=== PATIENT | male | born 1935 | race Caucasian/White ===

== ENCOUNTER 2021-02-18 23:21 | Inpatient (IN) | payer OTHER, MEDICARE ==
[~2021-02-18] VITALS: Ht 180.3 cm; Wt 73.3 kg
[~2021-02-18 23:21] MED LIST: ASCO500 PO; Aspir 8181 MG PO; BANATROL PLUS PT; Daily Vitamin1 EAC8 PO; FOLI1 PO; Garlic1 EAC1 PO; HURRICAINE ONE1 EACH MT; LEVSOD25 PO; LISI5 PO; LOPE2C PO; NIAC500 PO; OMEP20ER PO; ONDA4 PO; OYSTER SHELL 51 EACH PO; TRAZ50 PO; VITAMIN D31000 UNI1 PO; Vitamin B Comple1 EA PO
[2021-02-18 23:54] LABS: BASOPHILS ABSOLUTE AUTO 0.01 K/mm3 (0.00-0.23); BASOPHILS PERCENT AUTO 0 % (0-2); EOSINOPHILS ABSOLUTE AUTO 0.06 K/mm3 (0.00-0.68); EOSINOPHILS PERCENT AUTO 3 % (0-6); Hematocrit 26.3 % (37.0-53.0); Hemoglobin 9.1 g/dL (13.5-17.5); Mean Corpuscular HGB 33.7 pg (26.0-34.0); Mean Corpuscular HGB Conc 34.6 g/dL (31.5-36.5); Mean Corpuscular Volume 97 fL (80-100); NRBC ABSOLUTE 0.02 K/mm3 (0.00-0.02); NRBC Auto 0.8 /100 WBC (0.0-0.2); RDW Coefficient Variation 15.8 % (11.7-14.2); RDW Standard Deviation 53.3 fL (35.1-46.3); White Blood Cell Count 2.38 K/mm3 (4.00-11.30)
[2021-02-18 23:58] LABS: IMMATURE GRAN ABSOLUTE AUTO 0.02 K/mm3 (0.00-0.10); IMMATURE GRAN PERCENT AUTO 1 % (0-1); LYMPHOCYTES ABSOLUTE AUTO 0.42 K/mm3 (0.84-5.20); LYMPHOCYTES PERCENT AUTO 18 % (21-46); MONOCYTES ABSOLUTE AUTO 0.09 K/mm3 (0.16-1.47); MONOCYTES PERCENT AUTO 4 % (4-13); NEUTROPHILS ABSOLUTE AUTO 1.78 K/mm3 (1.96-9.15); NEUTROPHILS PERCENT AUTO 75 % (41-73); Platelet Count 93 K/mm3 (150-400)
[2021-02-19] LABS: Calcium, Ionized (POC) 1.01 mmol/L (1.10-1.46); Chloride (POC) 98 mmol/L (98-108); Creatinine (POC) 0.3 mg/dL (0.8-1.3); Glucose (ISTAT POC) 92 mg/dL (70-99); Hemoglobin (POC) 8.2 g/dL (13.5-17.5); Potassium (POC) 4.4 mmol/L (3.5-5.5); Sodium (POC) 131 mmol/L (135-148); Total CO2 (POC) 21 mmol/L (21-32)
[2021-02-19 00:12] LABS: Alanine Aminotransfer (ALT/SGP 33 U/L (12-78); Albumin, Blood 3.3 g/dL (3.4-5.0); Albumin/Globulin Ratio 1.2 (0.8-1.8); Alk Phos 52 U/L (50-136); Anion Gap 6 mmol/L (6-16); Aspartate Aminotrans (AST/SGOT 19 U/L (12-37); Bilirubin, Total 0.5 mg/dL (0.1-1.0); Blood Urea Nitrogen 17 mg/dL (8-24); Bun/Creatinine Ratio 31.9 (12.0-20.0); CO2, Blood 25 mmol/L (21-32); Calcium, Blood 7.9 mg/dL (8.5-10.1); Chloride, Blood 102 mmol/L (98-108); Creatinine, Blood 0.53 mg/dL (0.60-1.20); Globulin, Blood 2.7 g/dL (2.2-4.0); Glomerular Filtration Rate >60 (60-); Glucose, Blood 90 mg/dL (70-99); Potassium, Blood 4.8 mmol/L (3.5-5.5); Sodium, Blood 133 mmol/L (136-145); Troponin I <0.015 ng/mL (0.000-0.040)
[2021-02-19 00:51] LABS: Magnesium, Blood 1.9 mg/dL (1.6-2.4); Phosphorus, Blood 2.3 mg/dL (2.5-4.9)
[2021-02-19 02:53] LABS: Source, Urine Clean Catch
[2021-02-19 02:56] LABS: Bilirubin, Urine Neg (Neg); Blood, Urine Neg (Neg); Glucose Qualitative, Urine Neg (Neg); Ketones, Urine Neg (Neg); Leukocyte Esterase, Urine Neg (Neg); Nitrite, Urine Neg (Neg); Protein, Urine Neg (Neg); Urobilinogen, Urine 1+ (Normal)
[2021-02-19 02:57] LABS: Appearance, Urine Clear (Clear); Color, Urine Yellow (P-Yellow)
--- NOTE | 2021-02-19 06:45 | NUR ---
PT ADMITTED TO ROOM ICU 1 FROM EMERGENCY DEPARTMENT. ARRIVES AT 0432. PT ALERT AND ORIENTED. PLEASANT AND COOPERATIVE WITH CARE. PT'S ARRIVAL HEART RATE AT 140'S. NO SVT NOTED. PROCAINIMIDE INTIATED AT 1 MG/MIN. BLOOD PRESSURES REMAIN SOFT WITH MAP MAINTAINING 60-65. HAVE INCREASED MED TO 2MG/MIN. BLOOD PRESSURES HAVE DECREASED SLIGHTLY. WILL MONITOR FOR NEED TO START LEVOPHED DRIP. WILL CONTINUE TO MONITOR PT, AND WILL REPORT OFF TO ONCOMING RN.
--- NOTE | 2021-02-19 08:46 | NUR ---
Care Assumed 0700 Pt A/O X 4. On Procainamide GTT current @ 4 mg/min and Levophed 4 mcg/min. Pt converted to NSR form 0817 to 0834 and converted back to SVT (HR 130'S) after. See vital sign flowsheet for more detail. Calm and cooperative. Great historian. Pt recieved chemo on Tuesday. Denies CP and N/V. Has peg tube in place for bolus feeds that patient states he does independently at home. On RA SPO2 > 90%, lung sounds clear/dim. Call light within reach.
[2021-02-19 09:34] LABS: BASOPHILS ABSOLUTE AUTO 0.01 K/mm3 (0.00-0.23); BASOPHILS PERCENT AUTO 0 % (0-2); Hematocrit 22.1 % (37.0-53.0); Hemoglobin 7.5 g/dL (13.5-17.5); LYMPHOCYTES ABSOLUTE AUTO 0.36 K/mm3 (0.84-5.20); LYMPHOCYTES PERCENT AUTO 15 % (21-46); MONOCYTES ABSOLUTE AUTO 0.14 K/mm3 (0.16-1.47); MONOCYTES PERCENT AUTO 6 % (4-13); Mean Corpuscular HGB 33.3 pg (26.0-34.0); Mean Corpuscular HGB Conc 33.9 g/dL (31.5-36.5); Mean Corpuscular Volume 98 fL (80-100); Mean Platelet Volume 10.1 fL (9.1-12.4); NRBC ABSOLUTE 0.02 K/mm3 (0.00-0.02); NRBC Auto 0.9 /100 WBC (0.0-0.2); Platelet Count 93 K/mm3 (150-400); RDW Coefficient Variation 16.2 % (11.7-14.2); RDW Standard Deviation 55.5 fL (35.1-46.3); Red Blood Cell Count 2.25 M/mm3 (4.30-5.90); White Blood Cell Count 2.35 K/mm3 (4.00-11.30)
[2021-02-19 09:40] LABS: EOSINOPHILS ABSOLUTE AUTO 0.05 K/mm3 (0.00-0.68); EOSINOPHILS PERCENT AUTO 2 % (0-6); IMMATURE GRAN ABSOLUTE AUTO 0.02 K/mm3 (0.00-0.10); IMMATURE GRAN PERCENT AUTO 1 % (0-1); NEUTROPHILS ABSOLUTE AUTO 1.77 K/mm3 (1.96-9.15); NEUTROPHILS PERCENT AUTO 75 % (41-73)
[2021-02-19 09:55] LABS: Anion Gap 5 mmol/L (6-16); Blood Urea Nitrogen 15 mg/dL (8-24); Bun/Creatinine Ratio 25.4 (12.0-20.0); CO2, Blood 24 mmol/L (21-32); Calcium, Blood 6.9 mg/dL (8.5-10.1); Chloride, Blood 105 mmol/L (98-108); Creatinine, Blood 0.59 mg/dL (0.60-1.20); Glomerular Filtration Rate >60 (60-); Glucose, Blood 91 mg/dL (70-99); Potassium, Blood 4.7 mmol/L (3.5-5.5); Sodium, Blood 134 mmol/L (136-145); Troponin I 0.107 ng/mL (0.000-0.040)
--- NOTE | 2021-02-19 11:14 | NUR ---
Update- Dr. Cody and Dr. Zendejas visit Dr. Cody in to see patient and new orders recieved. Pts procainamide changed to amiodarone. Pt converted to NSR AT 1054, HR 80'S. Pt complains of having chest tightness and headache. Dr. Zendejas in to see patient, new orders recieved. See emar. Provider would like patients pain treated with Fenantyl, 12.5 mcg/ml. Echo at bedside.
--- NOTE | 2021-02-19 12:30 | NUR ---
Echocardiogram completed.
[2021-02-19 13:31] LABS: Hemoglobin 8.5 g/dL (13.5-17.5)
--- NOTE | 2021-02-19 13:32 | NUR ---
Update- Dr. Cody and Dr. Cristiana Cody would like Levophed titerated down to keep MAP > 60, see flow sheet. Would like EKG completed after patient converts. New orders recieved, see emar. Dr. Zendejas called in regards to patients pain. (05/31) tight CP, new orders recieved. Patient states pain has improved with morphine and ketorolac, see emar (01/29). Patient does not want another IV and ordered recieved to replace NaPhos via Peg.
--- NOTE | 2021-02-19 15:05 | NUR ---
Provider Call/NSR Pt converted to NSR at 1432. EKG completed see chart. Two EKG's, first shows NSR to AFIB with RVR back to NSR. Dr. Cody made aware. Provider would like MAP > 60, will titrate Levophed. Trop to be rechecked in 12 hours. Pt states CP is no longer present. NSR. VSS.
--- NOTE | 2021-02-19 17:38 | NUR ---
Dr. Cody called Dr. Cody called in regards to patient possibly being in VT (HR 155-250) for a few moments, see strip in chart. Pt asymptomatic. New orders recieved via phone for Mg and BMP lab draw. Dr. Cody at bedside and VT determined to be artifact. Labs canceled and new orders recieved, see emar.
--- NOTE | 2021-02-19 18:01 | NUR ---
Shift Summary Amiodarone 0.5 mg/min via left wrist IV. Has converted to NSR (HR 60-70'S), see previous notes. Pt denies CP and nausea at this time. Sleeping currently. Bolus feeds given per order via peg tube. Pt tolerated well. Able to use urinal at bedside. Remains A/O X 4 and calm/coopertive. Remains on RA, SPO2 > 95%. No cough. Able to use call light.
[2021-02-20 04:03] LABS: Hematocrit 21.5 % (37.0-53.0); Hemoglobin 7.2 g/dL (13.5-17.5); Mean Corpuscular HGB 33.3 pg (26.0-34.0); Mean Corpuscular HGB Conc 33.5 g/dL (31.5-36.5); Mean Corpuscular Volume 100 fL (80-100); Mean Platelet Volume 10.3 fL (9.1-12.4); Platelet Count 85 K/mm3 (150-400); RDW Coefficient Variation 16.6 % (11.7-14.2); RDW Standard Deviation 56.8 fL (35.1-46.3); Red Blood Cell Count 2.16 M/mm3 (4.30-5.90)
[2021-02-20 04:33] LABS: Anion Gap 5 mmol/L (6-16); Blood Urea Nitrogen 24 mg/dL (8-24); Bun/Creatinine Ratio 37.8 (12.0-20.0); CO2, Blood 24 mmol/L (21-32); Calcium, Blood 6.9 mg/dL (8.5-10.1); Chloride, Blood 101 mmol/L (98-108); Creatinine, Blood 0.64 mg/dL (0.60-1.20); Glomerular Filtration Rate >60 (60-); Glucose, Blood 127 mg/dL (70-99); Magnesium, Blood 2.2 mg/dL (1.6-2.4); Potassium, Blood 4.4 mmol/L (3.5-5.5); Sodium, Blood 130 mmol/L (136-145); Troponin I 0.052 ng/mL (0.000-0.040)
[2021-02-20 05:57] LABS: BAND PERCENT MAN 3 % (0-8); BASOPHILS PERCENT MAN 0 % (0-2); EOSINOPHILS ABSOLUTE MAN 0.02 K/mm3 (0.00-0.68); EOSINOPHILS PERCENT MAN 1 % (0-6); LYMPHOCYTES ABSOLUTE MAN 0.38 K/mm3 (0.84-5.20); LYMPHOCYTES PERCENT MAN 16 % (21-46); MONOCYTES ABSOLUTE MAN 0.14 K/mm3 (0.16-1.47); MONOCYTES PERCENT MAN 6 % (4-13); NEUTROPHILS ABSOLUTE MAN 1.84 K/mm3 (1.96-9.15); SEG NEUTROPHILS PERCENT MAN 74 % (41-73); TOTAL CELLS COUNTED 100
--- NOTE | 2021-02-20 07:15 | NUR ---
SHIFT SUMMARY PATIENT IS ALERT AND ORIENTED X4. 2 PERSON ASSIST WITH REPOSITIONING, ENCOURAGED ROM. 02 SATS 97% ON RA. AMIODARINE gtt @.5MG/MIN, PATIENT SR THROUGHOUT SHIFT. EKG DONE, IN CHART. LEVOPHED TITRATED DOWN AND TURNED OFF @0614. BP STABLE MAP IN THE 70s-80s. PATIENT STATES PAIN WITH DEEP BREATHING, MEDICATED PER EMAR. TUBE FEEDING AND FLUSHES PROVIDED. CALL LIGHT IN REACH.
--- NOTE | 2021-02-20 07:49 | NUR ---
Care Assumed 0700 Amiodarone 0.5 MG/MIN VIA POWERGLIDE TO CLARISSE. And LR @ 100 ML/HR via left wrist IV. Pt remains in NSR with HR 60's. Denies chest pain but states having "some discomfort with deep breaths." Levophed remains on SB, MAP > 65. A/O X 4. Calm and Coopertive. Call light within reach. Dr. Zendejas called in regards to Hgb of 7.2. Provider would like CBC completed at 1200.
--- NOTE | 2021-02-20 10:00 | NUR ---
DR. CHANCE IN TO SEE PATIENT Provider in to see patient. no new orders recieved. Provider made aware of H&H. Would like to transfuse if next Hbg is < 7.
--- NOTE | 2021-02-20 11:23 | NUR ---
PCU STATUS Dr. Cody in to see patient and would like to transfer to PCU. Transfer order placed. Pt A/O X 4. Levo remains offs. NSR. Denies CP except slight discomfort with deep breaths. SPO2 > 90%. LR @ 100 ml/hr.
--- NOTE | 2021-02-20 11:49 | NUR ---
Update- Dr. Cristiana Zendejas in to see patient. New orders recieved to DC LR once this bag is completed and patient may situp in chair, as tolerated. Will ambulate to chair when possible.
[2021-02-20 13:01] LABS: Hematocrit 19.8 % (37.0-53.0); Hemoglobin 6.8 g/dL (13.5-17.5); Mean Corpuscular HGB 33.8 pg (26.0-34.0); Mean Corpuscular HGB Conc 34.3 g/dL (31.5-36.5); Mean Corpuscular Volume 99 fL (80-100); Mean Platelet Volume 10.7 fL (9.1-12.4); Platelet Count 74 K/mm3 (150-400); RDW Coefficient Variation 16.4 % (11.7-14.2); RDW Standard Deviation 56.1 fL (35.1-46.3); Red Blood Cell Count 2.01 M/mm3 (4.30-5.90); White Blood Cell Count 1.83 K/mm3 (4.00-11.30)
--- NOTE | 2021-02-20 13:04 | NUR ---
Shift summary Report given to ELIANA Oropeza. Pt remains the same. See previous notes.
--- NOTE | 2021-02-20 13:29 | NUR ---
Assumed care of this pt. He is a/o x 4 with no c/o pain at this time. He is however perseverating over a lost set of keys. He is sitting up in bed making phone calls to find out what happened to the keys. His VSS. IV fluids are infusing as ordered. He is able to make his needs known and has his call light in reach. He is currently PCU status as of this afternoon.
[2021-02-20 14:02] LABS: BAND PERCENT MAN 2 % (0-8); BASOPHILS PERCENT MAN 0 % (0-2); EOSINOPHILS ABSOLUTE MAN 0.01 K/mm3 (0.00-0.68); EOSINOPHILS PERCENT MAN 1 % (0-6); LYMPHOCYTES % ATYPICAL MANUAL 3 % (0-0); LYMPHOCYTES ABSOLUTE MAN 0.31 K/mm3 (0.84-5.20); LYMPHOCYTES PERCENT MAN 14 % (21-46); MONOCYTES PERCENT MAN 0 % (4-13); SEG NEUTROPHILS PERCENT MAN 80 % (41-73); TOTAL CELLS COUNTED 100
--- NOTE | 2021-02-20 14:45 | NUR ---
Met with pt to discuss his care needs. pt [facility] [address]. He does not see much of his children. He is helped by neighbors. pt states he hs some appetite and feels full with his feedings. He denies any major pain. he states he has falled twice in the past few months one of them sounded very serious. He states he has an advance directive. He is not service connected but gets care at the [facility] at the [place]. He has an advance directive at home but not one from the [place] he has not filled it out yet. while we were talking his freind came in who has been helping him pay his bills. Pt made and error and did not give him enough money and shorted him. the friend covered it. Pt became very distraught so ended conversation so they could talk. will return to do a polst. pt use dial a ride. He may need higher level of support in his ADLS going forward. High risk for injury and failure to thrive. will see what oncology has to say about further treatment.
--- NOTE | 2021-02-20 14:48 | NUR ---
Pt hbg lab resulted at 6.8 and was called to Dr Zendejas. gave orders to infuse 1 un PRBCs and the blood bank has been notified. Pt needs to be type and crossed.
--- NOTE | 2021-02-20 16:32 | NUR ---
Echocardiogram completed.
--- NOTE | 2021-02-20 17:24 | NUR ---
Pt has a bed in PCU 12. The pt has been made aware of the pending transfer. Awaiting for call back from receiving RN.
--- NOTE | 2021-02-20 18:30 | NUR ---
PT ARRIVED TO [facility]. PT ALERT, ORIENTED AND ABLE TO STAND AND TRANSFER FROM WHEELCHAIR TO BED. PT ORIENTED TO ROOM, CALL LIGHT AND UNIT ROUTINES. PT'S BELONGINGS PLACED ON BEDSIDE TABLE W/IN HIS REACH. PT IS NPO. PT VERBALIZES UNDERSTANDING TO CALL STAFF IF NEEDING ASSISTANCE AND TO NOT GET OUT OF BED ON HIS OWN AT THIS TIME. CALL LIGHT IN REACH. NO FURTHER NEEDS IDENTIFIED. NETWORKS COMPUTER CONSULTANT IN PLACE.
--- NOTE | 2021-02-21 01:32 | NUR ---
AFTER TUBE FEEDING OF APROX 2100 PT REPORTED STOMACH DISCOMFORT. PT HAD LOOSE STOOL. PT ASKED TO HAVE SOME RESIDUAL TAKEN OUT. 200 WAS TAKEN OUT PER REQUEST. PT STILL IS FEELING UNCOMFORTABLE.
[2021-02-21 06:50] LABS: Hematocrit 23.1 % (37.0-53.0)
--- NOTE | 2021-02-21 08:00 | NUR ---
pt laying in bed awake a/ox3, pleasant and cooperative with care, saylows commands well, denies pain at this time reports a rough night with his stomach hurting, not nausia but pain, is feeling better now, no residule noted, lungs are clear t/o, dim in bases, resp even and unlabored, on r/a, no cough noted, hrirr, tele in place running afib with bbb per quality assurance monitor, see strip, edema noted to b/l le and ue, iv to lfa and power glide to elliot, sites are clear and patent, btx4, abd flat soft, voids via urinal and attends in place, skin c/w/d, maew, weak, eileen, call light in reach.
--- NOTE | 2021-02-21 08:05 | NUR ---
SHIFT SUMMARY PT IS ALERT AND RIENTED X4. PT VITALS ARE STABLE. PT REPORTS DISCOMFORT IN STOMACH AFTER TUBE FEEDING. PT DID TUBE FEEDING BY SELF DUE TO GRAVITY FEEDING THAT HE DOES AT HOME. PT WAS SET UP WITH FEEDING AND FLUSH WATER. APPROX 1HR AFTER FEEDING PT STS FEELING VERY FULL AND BLOATED THIS NURSE ASSISTED IN TAKING 200 OUT TO HELP WITH COMFORT. PT THEN AFTER HAD A LARGE BM AND ASKED IF MORE CONTENTS FROM THE FEEDING COULD BE REMOVED. THERE WAS NOT MUCH MORE TO REMOVE. PT REPORTED DISCOMFORT AND COULD NOT SLEEP. ASKED FOR SLEEP AID. MELATONIN PER EMAR WAS GIVEN WITH SMALL AMOUNT OF FLUID AND FLUSH. PT REFUSED TO TAKE ANY OTHER MEDICATIONS SUCH NAUSEA, PAIN, NYSTATIN, ADVIL. PT STS THAT HE HAS A FEAR OF "RUINING THE PEG TUBE" "ALWAYS FEELING THIS WAY AND HE WILL JUST ."
[2021-02-21 08:08] LABS: Anion Gap 6 mmol/L (6-16); Blood Urea Nitrogen 19 mg/dL (8-24); Bun/Creatinine Ratio 38.9 (12.0-20.0); CO2, Blood 25 mmol/L (21-32); Chloride, Blood 100 mmol/L (98-108); Creatinine, Blood 0.49 mg/dL (0.60-1.20); Glomerular Filtration Rate >60 (60-); Glucose, Blood 100 mg/dL (70-99); Magnesium, Blood 2.1 mg/dL (1.6-2.4); Potassium, Blood 4.6 mmol/L (3.5-5.5); Sodium, Blood 131 mmol/L (136-145)
--- NOTE | 2021-02-21 18:45 | NUR ---
STARTED BOWEL CARE, PT TOLERATED FEEDING BUT REPORTED IT MADE HIM FEEL VERY FULL. THIS WAS RAN ON A PUMP INSTEAD OF BOLUS. HE MAY WANT TO SKIP TONIGHTS FEED. NO FURTHER CHANGES THIS SHIFT. CALL LIGHT IN REACH.
[2021-02-22 05:52] LABS: Hematocrit 24.4 % (37.0-53.0); Hemoglobin 8.4 g/dL (13.5-17.5); Mean Corpuscular HGB 32.6 pg (26.0-34.0); Mean Corpuscular HGB Conc 34.4 g/dL (31.5-36.5); Mean Corpuscular Volume 95 fL (80-100); Mean Platelet Volume 9.9 fL (9.1-12.4); Platelet Count 98 K/mm3 (150-400); RDW Coefficient Variation 16.9 % (11.7-14.2); RDW Standard Deviation 56.2 fL (35.1-46.3); Red Blood Cell Count 2.58 M/mm3 (4.30-5.90); White Blood Cell Count 2.52 K/mm3 (4.00-11.30)
[2021-02-22 06:11] LABS: Alanine Aminotransfer (ALT/SGP 22 U/L (12-78); Albumin, Blood 2.2 g/dL (3.4-5.0); Albumin/Globulin Ratio 0.8 (0.8-1.8); Alk Phos 52 U/L (50-136); Anion Gap 5 mmol/L (6-16); Aspartate Aminotrans (AST/SGOT 15 U/L (12-37); Bilirubin, Total 0.6 mg/dL (0.1-1.0); Blood Urea Nitrogen 16 mg/dL (8-24); Bun/Creatinine Ratio 37.6 (12.0-20.0); CO2, Blood 25 mmol/L (21-32); Calcium, Blood 7.2 mg/dL (8.5-10.1); Chloride, Blood 99 mmol/L (98-108); Creatinine, Blood 0.43 mg/dL (0.60-1.20); Globulin, Blood 2.7 g/dL (2.2-4.0); Glomerular Filtration Rate >60 (60-); Glucose, Blood 88 mg/dL (70-99); Potassium, Blood 4.6 mmol/L (3.5-5.5); Sodium, Blood 129 mmol/L (136-145); Total Protein, Blood 4.9 g/dL (6.4-8.2)
[2021-02-22 06:25] LABS: BAND PERCENT MAN 1 % (0-8); BASOPHILS PERCENT MAN 0 % (0-2); EOSINOPHILS ABSOLUTE MAN 0.07 K/mm3 (0.00-0.68); EOSINOPHILS PERCENT MAN 3 % (0-6); LYMPHOCYTES ABSOLUTE MAN 0.42 K/mm3 (0.84-5.20); LYMPHOCYTES PERCENT MAN 17 % (21-46); MONOCYTES ABSOLUTE MAN 0.22 K/mm3 (0.16-1.47); MONOCYTES PERCENT MAN 9 % (4-13); NEUTROPHILS ABSOLUTE MAN 1.78 K/mm3 (1.96-9.15); SEG NEUTROPHILS PERCENT MAN 70 % (41-73); TOTAL CELLS COUNTED 100
--- NOTE | 2021-02-22 06:30 | NUR ---
SHIFT SUMMARY PATIENT IS A PLEASANT MAN WHO IS A&OX4 AND ZUNI. GOTTLIEB. GEN WEAKNESS NOTED. VSS. ON RA. AFIB ON THE MONITOR IN THE 80'S MOST OF SHIFT. NPO WITH Q2H ORAL CARE PERFORMED. UP WITH ONE ASSIST TO BSC. SMALL BM AT START OF SHIFT. REFUSED BOLUS FEED GOT OFF SCHEDULE THROUGH DAYSHIFT AFTER TOO FULL PREVIOUS NIGHT. VOIDING WELL PER URINAL. NO PAIN OR DISTRESS NOTED UPON ASSESSMENT. WILL CONTINUE TO MONITOR UNTIL REPORT GIVEN TO ELEN MONROY.
--- NOTE | 2021-02-22 13:31 | NUR ---
PCU GAVE REPORT TO THIS RN AND INFORMED ASSUMING RN THAT THEY HAD CORVERT SYRINGE IN UNIT AND WILL BRING OVER WITH PATIENT. THIS RN LOOKED MEDICATION UP AND IT STATED TO ADMINISTER OVER 10 MINUTES. PHARMACY CALLED AND INFORMED. PHARMACY STATED TO SEND BACK AND THEY WOULD PUT IN BOLUS FORM. DR. CORTES CALLED AND ASKED WHAT HE WOULD LIKE DONE ABOUT PATIENT RECIEVING AMIODARONE PO THIS AM AND DOSE ORDERED TO BE GIVEN AT 1400 CONTRAINDICATED TO GIVE AMIODARONE WITHIN [address] CORTES STATED THAT OKAY TO GIVE CORVERT SOON RECEIVE PATIENT AND MEDICATION. STATED TO STILL GIVE 1400 DOSE OF AMIODARONE WHILE CORVERT INFUSING BUT LOWER DOSE FROM 400 MG TO 200 MG. PHARMACY CALLED BY THIS RN AND NOTIFIED. PHARMACISTS STATED THEY WERE GOING TO TALK ABOUT CORVERT WITH AMIODARONE AND MAY CALL DR. CORTES TO TRIPLE CHECK.
--- NOTE | 2021-02-22 13:38 | NUR ---
PT TRANSFER: PT CONTINUES A&OX4, MAINTAINS O2 SATS >92% ON RA, AND CONTINUES IN AFIB WITH RATE INCREASING TO 110s. PT TRANSFERED TO ICU PER DR CORTES TO ALLOW ADMINISTRATION OF MEDICATION FOR ARRHYTHMIA. REPORT GIVEN TO ELIANA BOYLE IN ICU TO RECEIVE PT. PT DEPARTS IN NAD.
--- NOTE | 2021-02-22 13:50 | NUR ---
PATIENT ARRIVED AT 1340 FROM PCU TO CONVERT WITH CORVERT FROM A.FIB. PATIENT A AND O X 4. TEMP OF 99.1 DEGREES FAHRENHEIT. CABAZON. PATIENT SATTING 90% AND GREATER ON RA. LUNGS CLEAR THROUGHOUT. PATIENT IN A.FIB, HR IN THE LOW 100S. SBP 150S. 1+ EDEMA NOTED TO ANKLES. PEG TUBE IN PLACE; CLAMPED. NO VOID YET THIS SHIFT. RASH JUST BELOW AND MEDIAL TO KNEES. PG TO CLARISSE. SODIUM PHOS INFUSING. PATIENT ORIENTED TO ROOM, CALL LIGHT, UNIT. BED LOW, CALL LIGHT IN REACH. WILL CONTINUE TO MONITOR.
--- NOTE | 2021-02-22 14:13 | NUR ---
CORVERT BOLUS STARTED AT 1403. PATIENT CONVERTED INTO SR WITH BBB AT 1407 AFTER 20.7 MLS OF CORVERT INFUSED. CORVERT STOPPED SOON CONVERTED. DR. CORTES CALLED AND UPDATED. INFORMED THAT PATIENT HAVING SOME PACS. STATED TO KEEP CORVERT OFF AND IF GOES BACK IN TO A. FIB THEN TO GIVE HIM A CALL.
--- NOTE | 2021-02-22 15:41 | NUR ---
Dr Cody by and patient converted back to A-Fib 100's for about 10 minutes and back to SR 60-70's. See nurse notify for instructions. Patient denies and self awareness of conversions. No changes to systolic during that time.
--- NOTE | 2021-02-22 17:35 | NUR ---
PATIENT A AND O X 4, HOWEVER FORGETFUL AT TIMES. PATIENT HAS TEMP OF 99.0 DEGREES FAHRENHEIT. PATIENT REMAINS SATTING 90% AND GREATER ON RA. PATIENT REMAINS IN SR WITH BBB. HR IN THE 70S. SBP IN THE 130S. AWAITING CALL FROM PCU NURSE TO GIVE REPORT PATIENT TRANSFERRING BACK TO PCU.
--- NOTE | 2021-02-22 18:01 | NUR ---
PATIENT TRANSFERRED BACK TO PCU 12. ALL BELONGINGS SENT WITH PATIENT.
--- NOTE | 2021-02-22 18:41 | NUR ---
SHIFT SUMMARY: RECEIVED PT BACK FROM ICU. PT CONTINUES IN SR AT THIS TIME. NO OTHER ACUTE CHANGES. WILL CONTINUE TO MONITOR AND TREAT ACCORDINGLY UNTIL CHANGE OF SHIFT.
[2021-02-23 06:18] LABS: BASOPHILS ABSOLUTE AUTO 0.01 K/mm3 (0.00-0.23); BASOPHILS PERCENT AUTO 1 % (0-2); EOSINOPHILS PERCENT AUTO 5 % (0-6); Hematocrit 21.8 % (37.0-53.0); Hemoglobin 7.7 g/dL (13.5-17.5); Mean Corpuscular HGB 33.3 pg (26.0-34.0); Mean Corpuscular HGB Conc 35.3 g/dL (31.5-36.5); Mean Corpuscular Volume 94 fL (80-100); Mean Platelet Volume 9.7 fL (9.1-12.4); Platelet Count 103 K/mm3 (150-400); RDW Coefficient Variation 16.4 % (11.7-14.2); RDW Standard Deviation 55.1 fL (35.1-46.3); Red Blood Cell Count 2.31 M/mm3 (4.30-5.90); White Blood Cell Count 1.86 K/mm3 (4.00-11.30)
[2021-02-23 06:22] LABS: IMMATURE GRAN ABSOLUTE AUTO 0.01 K/mm3 (0.00-0.10); IMMATURE GRAN PERCENT AUTO 1 % (0-1); LYMPHOCYTES ABSOLUTE AUTO 0.53 K/mm3 (0.84-5.20); LYMPHOCYTES PERCENT AUTO 29 % (21-46); MONOCYTES ABSOLUTE AUTO 0.13 K/mm3 (0.16-1.47); MONOCYTES PERCENT AUTO 7 % (4-13); NEUTROPHILS ABSOLUTE AUTO 1.08 K/mm3 (1.96-9.15); NEUTROPHILS PERCENT AUTO 58 % (41-73)
[2021-02-23 06:39] LABS: Anion Gap 6 mmol/L (6-16); Blood Urea Nitrogen 16 mg/dL (8-24); Bun/Creatinine Ratio 34.5 (12.0-20.0); CO2, Blood 25 mmol/L (21-32); Calcium, Blood 7.1 mg/dL (8.5-10.1); Chloride, Blood 97 mmol/L (98-108); Creatinine, Blood 0.46 mg/dL (0.60-1.20); Glomerular Filtration Rate >60 (60-); Glucose, Blood 89 mg/dL (70-99); Magnesium, Blood 1.9 mg/dL (1.6-2.4); Phosphorus, Blood 2.3 mg/dL (2.5-4.9); Potassium, Blood 4.4 mmol/L (3.5-5.5); Sodium, Blood 128 mmol/L (136-145)
[2021-02-23 07:41] LABS: BAND PERCENT MAN 1 % (0-8); BASOPHILS PERCENT MAN 0 % (0-2); EOSINOPHILS ABSOLUTE MAN 0.13 K/mm3 (0.00-0.68); EOSINOPHILS PERCENT MAN 7 % (0-6); LYMPHOCYTES ABSOLUTE MAN 0.46 K/mm3 (0.84-5.20); LYMPHOCYTES PERCENT MAN 25 % (21-46); MONOCYTES ABSOLUTE MAN 0.11 K/mm3 (0.16-1.47); MONOCYTES PERCENT MAN 6 % (4-13); NEUTROPHILS ABSOLUTE MAN 1.15 K/mm3 (1.96-9.15); SEG NEUTROPHILS PERCENT MAN 61 % (41-73); TOTAL CELLS COUNTED 100
--- NOTE | 2021-02-23 07:50 | NUR ---
SHIFT SUMMARY PT IS A/O. DENIES CHEST PAIN/TIGHTNESS OR SOB. HAS ANXIETY ABOUT CONDITION AND PEG TUBE. VITALS HAVE BEEN STABLE AND ON ROOM AIR. BRIEF IN PLACE. FEEDINGS AND MEDICATIONS GIVEN THROUGH PEG TUB. DENIES STOMACH DISCOMFORT. SLEPT WELL T/O NIGHT.
--- NOTE | 2021-02-23 18:33 | NUR ---
SHIFT SUMMARY: PT CONTINUES A&O, RESP EVEN AND UNLABORED ON RA, AFIB WITH CONTROLLED RATE ON MONITOR. PT TOLERATES PEG TUBE FEEDINGS WELL, IS ABLE TO ASSIST WITH FEEDINGS. PT DOES C/O FEELING FULL THIS AFTERNOON AFTER HIS FEEDING, APPROX 120 ML RESIDUAL PULLED FROM TUBE, PT STATES IMPROVEMENT OF FEELING. PT EVAL COMPLETED TODAY. PT FOUND TO BE DOING LEG LIFTS AND ANKLE ROTATIONS IN THE BED, VERBALIZES MOTIVATION TO INCREASE STRENGTH. PT WITH SOME LOOSE STOOL, IS ABLE TO USE FWW TO BSC, MILD WEAKNESS NOTED. AT THIS TIME, PT IS RESTING QUIETLY IN BED, WILL CONTINUE TO MONITOR AND TREAT ACCORDINGLY UNTIL CHANGE OF SHIFT.
--- NOTE | 2021-02-23 22:00 | NUR ---
ASSUMED CARE PT IS ALERT AND ORIENTED. VERY EMOTIONAL AND ANXIOUS WHEN GETTING PEG TUBE CARE AND MEDICATION. MEDICATIONS AND FEEDINGS HAVE BEEN DONE BY GRAVITY WITH LIMITED FLUIDS PER PT REQUEST DUE TO FEAR OF CAUSING FULLNESS. PEG FLOWING WELL AND PT IS TOLERATING WELL. PT DENIES CHEST PAIN AND SOB, CURRENTLY ON ROOM AIR. ATTENDS IN PLACE, HAVING INCONT OF STOOL AND URINE. CALL LIGHT IS WITHIN REACH. WILL CONTINUE TO MONITOR.
[2021-02-24 06:20] LABS: BASOPHILS PERCENT AUTO 0 % (0-2); EOSINOPHILS ABSOLUTE AUTO 0.11 K/mm3 (0.00-0.68); EOSINOPHILS PERCENT AUTO 5 % (0-6); Hematocrit 22.1 % (37.0-53.0); Hemoglobin 7.8 g/dL (13.5-17.5); Mean Corpuscular HGB 32.9 pg (26.0-34.0); Mean Corpuscular HGB Conc 35.3 g/dL (31.5-36.5); Mean Corpuscular Volume 93 fL (80-100); Mean Platelet Volume 9.9 fL (9.1-12.4); Platelet Count 110 K/mm3 (150-400); RDW Coefficient Variation 16.1 % (11.7-14.2); RDW Standard Deviation 53.1 fL (35.1-46.3); Red Blood Cell Count 2.37 M/mm3 (4.30-5.90); White Blood Cell Count 2.13 K/mm3 (4.00-11.30)
[2021-02-24 06:27] LABS: IMMATURE GRAN ABSOLUTE AUTO 0.02 K/mm3 (0.00-0.10); IMMATURE GRAN PERCENT AUTO 1 % (0-1); LYMPHOCYTES ABSOLUTE AUTO 0.62 K/mm3 (0.84-5.20); LYMPHOCYTES PERCENT AUTO 29 % (21-46); MONOCYTES ABSOLUTE AUTO 0.29 K/mm3 (0.16-1.47); MONOCYTES PERCENT AUTO 14 % (4-13); NEUTROPHILS ABSOLUTE AUTO 1.09 K/mm3 (1.96-9.15); NEUTROPHILS PERCENT AUTO 51 % (41-73)
[2021-02-24 06:39] LABS: Anion Gap 6 mmol/L (6-16); Blood Urea Nitrogen 14 mg/dL (8-24); Bun/Creatinine Ratio 34.8 (12.0-20.0); CO2, Blood 25 mmol/L (21-32); Chloride, Blood 96 mmol/L (98-108); Glomerular Filtration Rate >60 (60-); Glucose, Blood 91 mg/dL (70-99); Potassium, Blood 4.3 mmol/L (3.5-5.5); Sodium, Blood 127 mmol/L (136-145)
--- NOTE | 2021-02-24 06:44 | NUR ---
SHIFT SUMMARY PT IS A/O. NO ACUTE CHANGES. PT IS RECIVING FEEDINGS AND MEDICATIONS THROUGH PEG TUBE WITH NO ISSUES. PT DENIES CHEST PAIN OR SOB AND IS ON ROOM AIR. PT IS INCONTINENT OF BOWEL AND URINE AND HAS A BRIEF IN PLACE. PT IS A ONE ASSIST TO BSC WITH WEAKNESS.
--- NOTE | 2021-02-24 13:22 | NUR ---
Patient is sitting on a chair and alert. Patient tells me about his cancer and about his current issues with his heart. Patient then talks at length about his natalya in God and refers to himself as a "born again believer" (he is a member of the [facility] [facility] [employer]). 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 He discusses the issues he has faced living alone and dealing with health issues but states that he feels he can still manage this for now. I reinforce helpful attitudes and practices and provide companionship, and prayer. Patient responds well and shows signs of an elevated mood. I will continue to remain available to patient and family.
--- NOTE | 2021-02-24 18:39 | NUR ---
SHIFT SUMMARY PT IS ANXIOUS REGARDING HIS CARE AND ASKS FREQUENT QUESTIONS AND NEEDS REASSURANCE. PT IS GRAYLING HOWEVER HE IS ALERT AND ORIENTED TIMES 4. PT HAS BEEN WORKING WITH PHYSICAL THERAPY TODAY AND IS A SBA WITH WALKER TO THE BATHROOM. PT HAS BEEN HAVING LOOSE STOOLS, WHICH IS NORMAL FOR HIM. PT HAS A PEG TUBE AND HELPS TO MANAGE HIS FEEDS; HE HAS HAD SOME DISCOMFORT THIS AFTERNOON AND RESIDUAL GASTRIC CONTENTS WERE ASPIRATED TO ALEVIATE THE DISCOMFORT. PT SHOULD DISCHARGE TOMORROW MOST LIKELY WITH HOME HEALTH. PT IS RESTING IN BED AT THIS TIME
--- NOTE | 2021-02-24 22:04 | NUR ---
L ARM SWELLING / MD NOTIFIED PT W/ REPORTED NEW L ARM SWELLING & BLE SWELLING. MD SUNSHINE NOTIFIED W/ ORDER FOR U.S. OF LUE & ONE TIME ORDER OF IV BUMEX. US DONE IN . NOTIFIED OF REPORTED RESULTS. NO FURTHER ORDERS.
--- NOTE | 2021-02-25 07:21 | NUR ---
SHIFT SUMMARY PT A&O X4. BP ELEVATED, IMPROVED W/ SCHEDULED PT METOPROLOL PER ORDERS. VSS. SPO2 > 92% ON RA. MONITOR SHOWING INTERMITTENT AFIB W/ PT SR-ST MAJORITY OF SHIFT, HR 60's-110's. PT NPO W/ PEG TUBE CLAMPED. L ARM REMAINS SWOLLEN, SEE PREVIOUS NOTE. NO OTHER EVENTS.
--- NOTE | 2021-02-25 09:21 | NUR ---
PT ALERT AND ORIENTED X4. ON ROOM AIR SATING ABOVE 94%. TELE SHOWING SINUS WITH HR 63. DENIES CHEST PAIN/PRESSURE. VITAL SIGNS STABLE. BOWEL TONES PRESENT. LUNGS SOUNDING CLEAR AND DIM IN BASES. PEG TUBE TO LUQ. GRAVITY FEEDING AND WATER FLUSHES PER SCHEDULE. PEG TUBE WNL. DENIES PAIN. LEFT FOREARM SWELLING COMPARED TO RIGHT. PETECHIA ON LOWER EXTREMIIES STARTING BELOW THE KNEE. PER PATIENT THAT IS NORM. WILL CONTINUE TO MONITOR. CALL LIGHT IN REACH.
[2021-02-25 11:27] LABS: Albumin, Blood 2.5 g/dL (3.4-5.0); Anion Gap 6 mmol/L (6-16); Blood Urea Nitrogen 13 mg/dL (8-24); CO2, Blood 25 mmol/L (21-32); Calcium, Blood 7.2 mg/dL (8.5-10.1); Chloride, Blood 95 mmol/L (98-108); Creatinine, Blood 0.48 mg/dL (0.60-1.20); Glomerular Filtration Rate >60 (60-); Glucose, Blood 89 mg/dL (70-99); Phosphorus, Blood 2.1 mg/dL (2.5-4.9); Potassium, Blood 4.1 mmol/L (3.5-5.5); Sodium, Blood 126 mmol/L (136-145)
[2021-02-25 11:29] LABS: Hematocrit 24.6 % (37.0-53.0); Hemoglobin 8.7 g/dL (13.5-17.5); Mean Corpuscular HGB 33.2 pg (26.0-34.0); Mean Corpuscular HGB Conc 35.4 g/dL (31.5-36.5); Mean Corpuscular Volume 94 fL (80-100); Mean Platelet Volume 10.5 fL (9.1-12.4); Platelet Count 132 K/mm3 (150-400); RDW Coefficient Variation 16.1 % (11.7-14.2); RDW Standard Deviation 52.6 fL (35.1-46.3); Red Blood Cell Count 2.62 M/mm3 (4.30-5.90); White Blood Cell Count 2.28 K/mm3 (4.00-11.30)
[2021-02-25 15:55] LABS: SARS-Cov-2 (COVID-19) PCR, MMC NEGATIVE (NEGATIVE)
[2021-02-25] MEDS ORDERED: AMIODARONE HCL400 M2 PO (16:36)
[2021-02-25] MEDS ORDERED: BISA10S PR (16:37)
[2021-02-25] MEDS ORDERED: COLCRYS0.6 M1 PO (16:38)
[2021-02-25] MEDS ORDERED: DOCU LIQUI50 MG/5 ML PT (16:40)
[2021-02-25] MEDS ORDERED: FURO20 PT (16:42)
[2021-02-25] MEDS ORDERED: IBUP400 PT (16:43)
--- NOTE | 2021-02-25 16:44 | NUR ---
DISCHARGE: PT ALERT AND ORIENTED X4. NO ACUTE CHANGES. VITAL SIGNS REMAIN STABLE. CALL LIGHT IN REACH. DENIES PAIN. TUBE FEEDINGS AND WATER FLUSHES PER SCHEDULE. TELE SHOWING SINUS WITH HR 60-70'S. POWER GLIDE REMOVED PER PROTOCOL. REPORTED CALLED TO KATEYARNOLD. CONCERNS AND QUESTIONS ANSWERED ABOUT [facility] AND PLAN OF CARE DISCUSSED. DISCHARGE PACKET SENT WITH PATIENT AND ALL PERSONAL BELONGINGS.
[2021-02-25] MEDS ORDERED: MELATONIN5 M1 PT (16:45)
[2021-02-25] MEDS ORDERED: METO25 PT (16:46)
[2021-02-25] MEDS ORDERED: XARELTO20 MG PT (16:47)
[2021-02-25] MEDS ORDERED: K-Phos Origina500 MG PT (16:47)
== END 2021-02-25 17:11 | DRG 308 ==
LOC: ER 23:21 → ERHOLD 23:22 → ICUE 23:22 → PCU 02-20 18:35 → ICUW 02-22 13:38 → PCU 02-22 18:04
PROVIDERS: Emergency Medicine; Internal Medicine; ADMIT Family Medicine
PROC: 5A2204Z Restoration of Cardiac Rhythm, Single (ICD-10-PCS; principal; 2021-02-19)
PROC: 3E033XZ Introduction of Vasopressor into Peripheral Vein, Percutaneous Approach (ICD-10-PCS; 2021-02-19)
DX: I47.1 Supraventricular tachycardia (principal); R57.0 Cardiogenic shock; R64 Cachexia; Z68.1 Body mass index [BMI] 19.9 or less, adult; C15.5 Malignant neoplasm of lower third of esophagus; E87.1 Hypo-osmolality and hyponatremia; B37.0 Candidal stomatitis; I30.8 Other forms of acute pericarditis; I10 Essential (primary) hypertension; Z20.822 Contact with and (suspected) exposure to COVID-19; E03.9 Hypothyroidism, unspecified; D64.81 Anemia due to antineoplastic chemotherapy; I95.2 Hypotension due to drugs; T46.1X5A Adverse effect of calcium-channel blockers, initial encounter; I48.91 Unspecified atrial fibrillation; Z85.46 Personal history of malignant neoplasm of prostate; Z93.1 Gastrostomy status; Z79.82 Long term (current) use of aspirin; Z79.899 Other long term (current) drug therapy
CPT/HCPCS: 36415; 36430; 71045; 71260; 74018; 80047; 80048; 80053; 80069; 81003; 83605; 83735; 83880; 84100; 84145; 84443; 84484; 85014; 85018; 85025; 85027; 86850; 86900; 86901; 86923; 87040; 92960; 93005; 93010; 93306; 93308; 93321; 93971; 96365; 96366; 96367; 96375; 96376; 97110; 97116; 97162; 97530; 99291-25; A9270; C1751; G0378; J0153; J0282; J0696; J1650; J1742; J1885; J2270; J2405; J2690; J2704; J3010; J7030; J7050; J7060; J7120; P9016; Q9967; U0004

== ENCOUNTER 2021-04-10 00:24 | Day surgery (SDC) | payer OTHER ==
[~2021-04-10 00:24] MED LIST changes: +AMIODARONE HCL400 M2 PO; +BISA10S PR; +COLCRYS0.6 M1 PO; +DOCU LIQUI50 MG/5 ML PT; +FURO20 PT; +IBUP400 PT; +K-Phos Origina500 MG PT; +MELATONIN5 M1 PT; +METO25 PT; +XARELTO20 MG PT
[2021-04-10] MEDS ORDERED: DOXA4 PO (17:13)
[2021-04-10] MEDS ORDERED: FLUTICASONE-SA1 EAC1 INH (17:14)
[2021-04-10] MEDS ORDERED: TAMS.4ER PO (17:14)
[2021-04-10] MEDS ORDERED: BENMENLOZ PO (17:15)
[2021-04-10] MEDS ORDERED: LACT PO (17:18)
[2021-04-10] MEDS ORDERED: OMEP20ER PO (17:18)
[2021-04-10] MEDS ORDERED: HYDR1TAB94 PO (17:18)
[2021-04-10] MEDS ORDERED: TRAZ50 PO (17:19)
[2021-04-10] MEDS ORDERED: FOLI1 PO (17:20)
[2021-04-10] MEDS ORDERED: NIAC500 PO (17:20)
[2021-04-10] MEDS ORDERED: MULVITA PO (17:21)
== END 2021-04-10 23:54 | disposition home or self-care (01) ==
LOC: ATC 00:24
DX: U07.1 COVID-19 (principal); J98.8 Other specified respiratory disorders; E03.9 Hypothyroidism, unspecified; I48.0 Paroxysmal atrial fibrillation; I47.1 Supraventricular tachycardia; I45.10 Unspecified right bundle-branch block; I30.9 Acute pericarditis, unspecified; C15.9 Malignant neoplasm of esophagus, unspecified; D64.81 Anemia due to antineoplastic chemotherapy; Z85.46 Personal history of malignant neoplasm of prostate; Z93.1 Gastrostomy status; Z79.01 Long term (current) use of anticoagulants; Z87.891 Personal history of nicotine dependence
CPT/HCPCS: 96365; Q0243

== ENCOUNTER 2021-08-04 07:44 | Emergency (ER) | payer OTHER ==
[~2021-08-04] VITALS: Ht 180.3 cm; Wt 65.8 kg
[~2021-08-04 07:44] MED LIST changes: +BENMENLOZ PO; +DOXA4 PO; +FLUTICASONE-SA1 EAC1 INH; +HYDR1TAB94 PO; +LACT PO; +MULVITA PO; +TAMS.4ER PO
[2021-08-04 08:40] LABS: Calcium, Ionized (POC) 1.15 mmol/L (1.10-1.46); Chloride (POC) 102 mmol/L (98-108); Creatinine (POC) 0.7 mg/dL (0.8-1.3); Glucose (ISTAT POC) 104 mg/dL (70-99); Hemoglobin (POC) 11.2 g/dL (13.5-17.5); Potassium (POC) 4.5 mmol/L (3.5-5.5); Sodium (POC) 135 mmol/L (135-148); Total CO2 (POC) 25 mmol/L (21-32)
[2021-08-04 08:42] LABS: BASOPHILS ABSOLUTE AUTO 0.03 K/mm3 (0.00-0.23); BASOPHILS PERCENT AUTO 0 % (0-2); EOSINOPHILS ABSOLUTE AUTO 0.19 K/mm3 (0.00-0.68); EOSINOPHILS PERCENT AUTO 3 % (0-6); Hematocrit 34.1 % (37.0-53.0); Hemoglobin 11.5 g/dL (13.5-17.5); IMMATURE GRAN ABSOLUTE AUTO 0.01 K/mm3 (0.00-0.10); IMMATURE GRAN PERCENT AUTO 0 % (0-1); LYMPHOCYTES ABSOLUTE AUTO 2.04 K/mm3 (0.84-5.20); LYMPHOCYTES PERCENT AUTO 30 % (21-46); MONOCYTES ABSOLUTE AUTO 0.47 K/mm3 (0.16-1.47); MONOCYTES PERCENT AUTO 7 % (4-13); Mean Corpuscular HGB 32.8 pg (26.0-34.0); Mean Corpuscular HGB Conc 33.7 g/dL (31.5-36.5); Mean Corpuscular Volume 97 fL (80-100); Mean Platelet Volume 9.5 fL (9.1-12.4); NEUTROPHILS ABSOLUTE AUTO 4.16 K/mm3 (1.96-9.15); NEUTROPHILS PERCENT AUTO 60 % (41-73); Platelet Count 129 K/mm3 (150-400); RDW Standard Deviation 49.9 fL (35.1-46.3); Red Blood Cell Count 3.51 M/mm3 (4.30-5.90)
[2021-08-04 09:03] LABS: International Normalized Ratio 1.06; Prothrombin Time Results 11.1 Sec (9.7-11.5)
[2021-08-04 09:06] LABS: Alanine Aminotransfer (ALT/SGP 31 U/L (12-78); Albumin, Blood 3.3 g/dL (3.4-5.0); Albumin/Globulin Ratio 1.2 (0.8-1.8); Alk Phos 55 U/L (50-136); Anion Gap 5 mmol/L (6-16); Aspartate Aminotrans (AST/SGOT 19 U/L (12-37); Bilirubin, Total 0.4 mg/dL (0.1-1.0); Blood Urea Nitrogen 18 mg/dL (8-24); Bun/Creatinine Ratio 30.4 (12.0-20.0); CO2, Blood 27 mmol/L (21-32); Calcium, Blood 8.4 mg/dL (8.5-10.1); Chloride, Blood 107 mmol/L (98-108); Creatinine, Blood 0.59 mg/dL (0.60-1.20); Globulin, Blood 2.8 g/dL (2.2-4.0); Glomerular Filtration Rate >60 (60-); Glucose, Blood 102 mg/dL (70-99); Potassium, Blood 4.6 mmol/L (3.5-5.5); Sodium, Blood 139 mmol/L (136-145); Total Protein, Blood 6.1 g/dL (6.4-8.2)
[2021-08-04 09:25] LABS: Influenza A, PCR NEGATIVE (NEGATIVE); Influenza B, PCR NEGATIVE (NEGATIVE); SARS-Cov-2 (COVID-19) PCR, MMC NEGATIVE (NEGATIVE)
[2021-08-04 09:29] LABS: Resp Syncytial Virus, PCR POSITIVE (NEGATIVE)
== END 2021-08-04 09:07 | disposition home or self-care (01) ==
LOC: ER 07:44
PROVIDERS: Emergency Medicine
DX: K40.90 Unilateral inguinal hernia, without obstruction or gangrene, not specified as recurrent (principal); I10 Essential (primary) hypertension; E03.9 Hypothyroidism, unspecified; Z79.899 Other long term (current) drug therapy
CPT/HCPCS: 0241U; 80047; 80053; 85014; 85025; 85610; 85730; 96374; 99284-25; J1170

== ENCOUNTER 2021-11-16 06:06 | Day surgery (SDC) | payer OTHER ==
[~2021-11-16] VITALS: Ht 180.3 cm; Wt 64.0 kg
[~2021-11-16 06:06] MED LIST changes: +FERSU300 PO; +VITAMIN D310 MC4 PO; +XARELTO20 MG PO; -XARELTO20 MG PT
[2021-11-16] MEDS ORDERED: LISI5 PO (06:32)
--- NOTE | 2021-11-16 07:13 | NUR ---
History, Chart, Medications and Allergies reviewed before start of procedure. Lungs clear T/O to Auscultation. Patient confirms NPO status and agrees with scheduled surgery. Patient reports completing Chlorhexadine shower X2 prior to admission to hospital. Pre-Op teaching done. Pt verbalizes understanding. Patient States Post-Procedure ride home has been arranged.
--- NOTE | 2021-11-16 10:36 | NUR ---
Dressing to procedure site clean, dry, intact with no visible drainage, swelling, erythema or bruising noted. Discharge instructions reviewed with patient. Patient verbalizes understanding. Copy given to patient to take home.
--- NOTE | 2021-11-16 11:15 | NUR ---
Discharged via wheelchair to private car for ride home.
== END 2021-11-16 11:15 | disposition home or self-care (01) ==
LOC: ORSCMMR 06:06 → ORD 07:30 → ORSCMMR 11:15
PROVIDERS: Surgery
PROC: 0YU60JZ Supplement Left Inguinal Region with Synthetic Substitute, Open Approach (ICD-10-PCS; principal; 2021-11-16 07:30)
DX: K40.30 Unilateral inguinal hernia, with obstruction, without gangrene, not specified as recurrent (principal); I10 Essential (primary) hypertension; I48.91 Unspecified atrial fibrillation; K21.9 Gastro-esophageal reflux disease without esophagitis; Z86.73 Personal history of transient ischemic attack (TIA), and cerebral infarction without residual deficits; E03.9 Hypothyroidism, unspecified; Z79.899 Other long term (current) drug therapy; Z85.01 Personal history of malignant neoplasm of esophagus
CPT/HCPCS: A9270; C1781; J0690; J1100; J2405; J2704; J3010; J7120

== ENCOUNTER 2022-03-03 09:39 | Day surgery (SDC) | payer OTHER ==
[~2022-03-03] VITALS: Ht 180.3 cm; Wt 62.0 kg
[2022-03-03] MEDS ORDERED: METO25ER PO (10:32)
[2022-03-03] MEDS ORDERED: DOXA4 PO (10:53)
[2022-03-03] MEDS ORDERED: DOCU100 PO (10:53)
--- NOTE | 2022-03-03 14:10 | NUR ---
Patient up to Ambulate independently. Gait steady. Discharge instructions reviewed with patient. Patient verbalizes understanding. Copy given to patient to take home. Dressing to procedure site clean, dry, intact with no visible drainage, swelling, erythema or bruising noted. Discharged via wheelchair to private car for ride home W/FRIENDS
== END 2022-03-03 23:56 | disposition home or self-care (01) ==
LOC: ORSCMMR 09:39 → ORD 11:30 → ORSCMMR 11:30
PROVIDERS: Surgery
PROC: 05HM33Z Insertion of Infusion Device into Right Internal Jugular Vein, Percutaneous Approach (ICD-10-PCS; principal; 2022-03-03 11:30)
PROC: B543ZZA Ultrasonography of Right Jugular Veins, Guidance (ICD-10-PCS; principal; 2022-03-03 11:30)
DX: C15.5 Malignant neoplasm of lower third of esophagus (principal); I10 Essential (primary) hypertension; K21.9 Gastro-esophageal reflux disease without esophagitis; E03.9 Hypothyroidism, unspecified; I48.0 Paroxysmal atrial fibrillation; Z85.46 Personal history of malignant neoplasm of prostate; Z85.6 Personal history of leukemia; Z79.899 Other long term (current) drug therapy
CPT/HCPCS: 77001; C1788; J0690; J1100; J1642; J1885; J2405; J2704; J2795; J3010; J7120

== ENCOUNTER → 2022-03-24 | Outpatient (CLI) | payer OTHER ==
[~2022-03-24] MED LIST changes: +DOCU100 PO; +METO25ER PO
[2022-03-24 10:57] LABS: Hematocrit 30.9 % (37.0-53.0); Hemoglobin 10.3 g/dL (13.5-17.5); Mean Corpuscular HGB Conc 33.3 g/dL (31.5-36.5); Mean Corpuscular Volume 99 fL (80-100); Mean Platelet Volume 9.8 fL (9.1-12.4); Platelet Count 104 K/mm3 (150-400); RDW Coefficient Variation 14.3 % (11.7-14.2); RDW Standard Deviation 51.2 fL (35.1-46.3); Red Blood Cell Count 3.12 M/mm3 (4.30-5.90); White Blood Cell Count 4.56 K/mm3 (4.00-11.30)
[2022-03-24 12:49] LABS: BASOPHILS PERCENT MAN 0 % (0-2); EOSINOPHILS ABSOLUTE MAN 0.22 K/mm3 (0.00-0.68); EOSINOPHILS PERCENT MAN 5 % (0-6); LYMPHOCYTES % ATYPICAL MANUAL 6 % (0-0); LYMPHOCYTES PERCENT MAN 62 % (21-46); MONOCYTES ABSOLUTE MAN 0.13 K/mm3 (0.16-1.47); MONOCYTES PERCENT MAN 3 % (4-13); NEUTROPHILS ABSOLUTE MAN 1.09 K/mm3 (1.96-9.15); SEG NEUTROPHILS PERCENT MAN 24 % (41-73); TOTAL CELLS COUNTED 100
== END | disposition home or self-care (01) ==
LOC: LAB SHORT 10:26
PROVIDERS: Internal Medicine Hematology & Oncology
DX: C15.9 Malignant neoplasm of esophagus, unspecified (principal)
CPT/HCPCS: 36415; 85025

== ENCOUNTER 2022-06-28 21:54 | Emergency (ER) | payer OTHER ==
[~2022-06-28] VITALS: Ht 180.3 cm; Wt 61.2 kg
== END 2022-06-28 23:37 | disposition home or self-care (01) ==
LOC: ER 21:54
DX: L27.1 Localized skin eruption due to drugs and medicaments taken internally (principal); T45.1X5A Adverse effect of antineoplastic and immunosuppressive drugs, initial encounter; I10 Essential (primary) hypertension; E03.9 Hypothyroidism, unspecified; Z79.890 Hormone replacement therapy; Z79.01 Long term (current) use of anticoagulants; Z79.899 Other long term (current) drug therapy
CPT/HCPCS: A9270

== ENCOUNTER 2022-07-02 13:20 | Inpatient (IN) | payer OTHER ==
[~2022-07-02] VITALS: Ht 180.3 cm; Wt 59.9 kg
[2022-07-02 14:12] LABS: Hematocrit 28.1 % (37.0-53.0); Hemoglobin 9.9 g/dL (13.5-17.5); Mean Corpuscular HGB 34.7 pg (26.0-34.0); Mean Corpuscular HGB Conc 35.2 g/dL (31.5-36.5); Mean Corpuscular Volume 99 fL (80-100); Mean Platelet Volume 12.2 fL (9.1-12.4); RDW Coefficient Variation 14.7 % (11.7-14.2); RDW Standard Deviation 53.7 fL (35.1-46.3); Red Blood Cell Count 2.85 M/mm3 (4.30-5.90)
[2022-07-02 14:43] LABS: Platelet Count 45 K/mm3 (150-400)
[2022-07-02 15:09] LABS: Albumin, Blood 2.7 g/dL (3.4-5.0); Bilirubin, Total 1.8 mg/dL (0.1-1.0); Bun/Creatinine Ratio 22.3 (12.0-20.0); Calcium, Blood 7.5 mg/dL (8.5-10.1); Creatinine, Blood 0.49 mg/dL (0.60-1.20); Globulin, Blood 2.6 g/dL (2.2-4.0); Potassium, Blood 4.3 mmol/L (3.5-5.5); Total Protein, Blood 5.3 g/dL (6.4-8.2)
[2022-07-02 15:18] LABS: Influenza A, PCR NEGATIVE (NEGATIVE); Influenza B, PCR NEGATIVE (NEGATIVE); Resp Syncytial Virus, PCR NEGATIVE (NEGATIVE); SARS-Cov-2 (COVID-19) PCR, MMC NEGATIVE (NEGATIVE)
[2022-07-02 16:12] LABS: BAND PERCENT MAN 6 % (0-8); BASOPHILS ABSOLUTE MAN 0.01 K/mm3 (0.00-0.23); BASOPHILS PERCENT MAN 2 % (0-2); EOSINOPHILS ABSOLUTE MAN 0.01 K/mm3 (0.00-0.68); EOSINOPHILS PERCENT MAN 3 % (0-6); LYMPHOCYTES % ATYPICAL MANUAL 3 % (0-0); LYMPHOCYTES ABSOLUTE MAN 0.29 K/mm3 (0.84-5.20); LYMPHOCYTES PERCENT MAN 46 % (21-46); MONOCYTES ABSOLUTE MAN 0.01 K/mm3 (0.16-1.47); MONOCYTES PERCENT MAN 2 % (4-13); NEUTROPHILS ABSOLUTE MAN 0.26 K/mm3 (1.96-9.15); SEG NEUTROPHILS PERCENT MAN 38 % (41-73); TOTAL CELLS COUNTED 100
[2022-07-03 06:27] LABS: Hematocrit 28.8 % (37.0-53.0); Hemoglobin 9.9 g/dL (13.5-17.5); Mean Corpuscular HGB 34.6 pg (26.0-34.0); Mean Corpuscular HGB Conc 34.4 g/dL (31.5-36.5); Mean Corpuscular Volume 101 fL (80-100); Mean Platelet Volume 10.4 fL (9.1-12.4); RDW Coefficient Variation 14.8 % (11.7-14.2); RDW Standard Deviation 54.9 fL (35.1-46.3); Red Blood Cell Count 2.86 M/mm3 (4.30-5.90)
[2022-07-03 06:41] LABS: Albumin, Blood 2.6 g/dL (3.4-5.0); Albumin/Globulin Ratio 1.2 (0.8-1.8); Bilirubin, Total 1.7 mg/dL (0.1-1.0); Calcium, Blood 7.5 mg/dL (8.5-10.1); Creatinine, Blood 0.54 mg/dL (0.60-1.20); Globulin, Blood 2.2 g/dL (2.2-4.0); Potassium, Blood 4.1 mmol/L (3.5-5.5); Total Protein, Blood 4.8 g/dL (6.4-8.2)
[2022-07-03 06:57] LABS: BASOPHILS PERCENT AUTO 0 % (0-2); EOSINOPHILS ABSOLUTE AUTO 0.01 K/mm3 (0.00-0.68); EOSINOPHILS PERCENT AUTO 1 % (0-6); IMMATURE GRAN ABSOLUTE AUTO 0.01 K/mm3 (0.00-0.10); IMMATURE GRAN PERCENT AUTO 1 % (0-1); LYMPHOCYTES ABSOLUTE AUTO 0.38 K/mm3 (0.84-5.20); LYMPHOCYTES PERCENT AUTO 41 % (21-46); MONOCYTES ABSOLUTE AUTO 0.05 K/mm3 (0.16-1.47); MONOCYTES PERCENT AUTO 5 % (4-13); NEUTROPHILS ABSOLUTE AUTO 0.48 K/mm3 (1.96-9.15); NEUTROPHILS PERCENT AUTO 52 % (41-73)
[2022-07-03 07:06] LABS: Platelet Count 45 K/mm3 (150-400); White Blood Cell Count 0.93 K/mm3 (4.00-11.30)
--- NOTE | 2022-07-03 07:31 | NUR ---
NEW ADMIT FROM ED. A&O X 4. VSS. PLEASANT AND COOPERATIVE WITH STAFF. ON NEUTRAPENIC AND CHEMO PRECAUTION. USES URINAL AT BEDSIDE. GENERALIZED WEAKNESS. NEEDS STOOL SAMPLE, PT HAS NOT HAD BM ON THIS SHIFT. WILL CONTINUE TO MONITOR. BED ALARM ON.
--- NOTE | 2022-07-03 18:38 | NUR ---
SHIFT SUMMARY: PT A/O X 4 STANDBY ASSIST TO BSC. PT DID NOT HAVE ANY EPISODES OF N/V/OR DIARRHEA THROUGHOUT THE DAY. AT SHIFT END PT DID EXPERIENCE A BOUT OF UNCONTROLLABLE DIARRHEA AND DID NOT MAKE IT TO BATHROOM. SAMPLE WAS UNABLE TO BE OBTAINED. PT REMAINS IF NEUTROPENIC PRECAUTIONS DUE TO LOW WBC. PT DENIED PAIN T/OUT SHIFT. PT TOLERATING PO INTAKE.
--- NOTE | 2022-07-04 05:37 | NUR ---
SHIFT SUMMARY A&O X 4. VSS. C/O STOMACH ACHE AFTER GIVEN IV ABX. PT STARTED FEELING BETTER AFTER A FEW HOURS OF REST. AT 0320, PT FELT THE URGE TO VOMIT AND ASKED FOR EMESIS BAG. PRN ZOFRAN IV GIVEN TO PT WITH GOOD RESULT. USES URINAL AT BEDSIDE. DID NOT HAVE BM THIS SHIFT. NEED STOOL SAMPLE TO BE COLLECTED.
[2022-07-04 05:39] LABS: BASOPHILS PERCENT AUTO 0 % (0-2); EOSINOPHILS ABSOLUTE AUTO 0.01 K/mm3 (0.00-0.68); EOSINOPHILS PERCENT AUTO 1 % (0-6); Hematocrit 28.7 % (37.0-53.0); Hemoglobin 9.6 g/dL (13.5-17.5); IMMATURE GRAN ABSOLUTE AUTO 0.01 K/mm3 (0.00-0.10); IMMATURE GRAN PERCENT AUTO 1 % (0-1); LYMPHOCYTES ABSOLUTE AUTO 0.35 K/mm3 (0.84-5.20); LYMPHOCYTES PERCENT AUTO 27 % (21-46); MONOCYTES ABSOLUTE AUTO 0.12 K/mm3 (0.16-1.47); MONOCYTES PERCENT AUTO 9 % (4-13); Mean Corpuscular HGB Conc 33.4 g/dL (31.5-36.5); Mean Corpuscular Volume 102 fL (80-100); Mean Platelet Volume 10.8 fL (9.1-12.4); NEUTROPHILS ABSOLUTE AUTO 0.81 K/mm3 (1.96-9.15); NEUTROPHILS PERCENT AUTO 62 % (41-73); RDW Coefficient Variation 14.6 % (11.7-14.2); RDW Standard Deviation 55.3 fL (35.1-46.3); Red Blood Cell Count 2.82 M/mm3 (4.30-5.90)
[2022-07-04 05:56] LABS: Platelet Count 37 K/mm3 (150-400)
[2022-07-04 06:15] LABS: Albumin, Blood 2.4 g/dL (3.4-5.0); Bilirubin, Total 1.6 mg/dL (0.1-1.0); Calcium, Blood 7.2 mg/dL (8.5-10.1); Creatinine, Blood 0.47 mg/dL (0.60-1.20); Globulin, Blood 2.3 g/dL (2.2-4.0); Total Protein, Blood 4.7 g/dL (6.4-8.2)
--- NOTE | 2022-07-04 18:38 | NUR ---
END OF SHIFT SUMMARY: PATIENT DENIED OVERALL PAIN. PATIENT DENIED SHORTNESS OF BREATH OR DIFFICULTY BREATHING. PATIENT REPORTED A STUFFY NOSE. BREATHS EVEN AND REGULAR. NO SHORTNESS OF BREATH NOTED AT REST OR WITH ACTIVITY. PATIENT'S MAIN COMPLAINT WAS ORAL ULCERS CAUSING PAIN AND DISCOMFORT. MEDICATED MULTIPLE TIMES WITH PRN MEDICATIONS. PATIENT REPORTED SHORT LIVED RELIEF. PROVIDED WARM FLUIDS AND EASY TO EAT FOOD. PATIENT UP IN ROOM TO BEDSIDE COMMODE, TO THE CHAIR AND TO CLOSE THE WINDOW BLINDS. PATIENT STEADY ON FEET AND USES FURNITURE IF NEEDED. PATIENT SAID IF NEED BE HE WOULD CONSIDER HOME HEALTH PT. PATIENT REPORTS HE HAS A FRIEND THAT HELPS HIM GO GROCERY SHOPPING. OTHERWISE, THE PATIENT REPORTS HE PERFORMS ALL HOME CARE, CLEANING, ETC BY HIMSELF. PATIENT IS VERY ANXIOUS AT TIMES ABOUT HIS CURRENT SITUATION AND ANTICIPATION OF CARE (EX: PLACEMENT OF A NEW PIV) . EASILY ASSURED WITH MORE INFORMATION AND FORMATION OF A PLAN.
[2022-07-05 06:09] LABS: BASOPHILS ABSOLUTE AUTO 0.01 K/mm3 (0.00-0.23); BASOPHILS PERCENT AUTO 1 % (0-2); EOSINOPHILS ABSOLUTE AUTO 0.02 K/mm3 (0.00-0.68); EOSINOPHILS PERCENT AUTO 1 % (0-6); Hematocrit 28.7 % (37.0-53.0); IMMATURE GRAN ABSOLUTE AUTO 0.02 K/mm3 (0.00-0.10); IMMATURE GRAN PERCENT AUTO 1 % (0-1); LYMPHOCYTES ABSOLUTE AUTO 0.39 K/mm3 (0.84-5.20); LYMPHOCYTES PERCENT AUTO 28 % (21-46); MONOCYTES ABSOLUTE AUTO 0.16 K/mm3 (0.16-1.47); MONOCYTES PERCENT AUTO 11 % (4-13); Mean Corpuscular HGB 34.8 pg (26.0-34.0); Mean Corpuscular HGB Conc 34.8 g/dL (31.5-36.5); Mean Corpuscular Volume 100 fL (80-100); Mean Platelet Volume 10.8 fL (9.1-12.4); NEUTROPHILS ABSOLUTE AUTO 0.82 K/mm3 (1.96-9.15); NEUTROPHILS PERCENT AUTO 58 % (41-73); RDW Coefficient Variation 14.6 % (11.7-14.2); RDW Standard Deviation 53.5 fL (35.1-46.3); Red Blood Cell Count 2.87 M/mm3 (4.30-5.90); White Blood Cell Count 1.42 K/mm3 (4.00-11.30)
[2022-07-05 06:24] LABS: Albumin, Blood 2.6 g/dL (3.4-5.0); Albumin/Globulin Ratio 1.1 (0.8-1.8); Bilirubin, Total 1.2 mg/dL (0.1-1.0); Bun/Creatinine Ratio 18.6 (12.0-20.0); Calcium, Blood 7.9 mg/dL (8.5-10.1); Creatinine, Blood 0.48 mg/dL (0.60-1.20); Globulin, Blood 2.4 g/dL (2.2-4.0); Potassium, Blood 4.1 mmol/L (3.5-5.5)
[2022-07-05 06:26] LABS: Platelet Count 40 K/mm3 (150-400)
--- NOTE | 2022-07-05 07:50 | NUR ---
SUMMARY PT C/O NASAL CONGESTION THIS AM.PT REQUESTING SOMETHING FOR THE CONGESTION, DAY RN AGREES TO FOLLOW UP WTH DR POSSIBLY CHECKING NOSE TO CONFIRM NOTHING IS GOING ON STRUCTURALLY DUE TO PTS DIAGNOSIS OF ESOPHAGEAL CA AND WILL ASK POSSIBILITY OF GETTING ORDER FOR OCEAN NASAL SPRAY.
[2022-07-05] MEDS ORDERED: AZIT500 PO (12:36)
[2022-07-05] MEDS ORDERED: CEFD300 PO (12:37)
[2022-07-05] MEDS ORDERED: VISBIOME 112.51 EACH PO (12:43)
== END 2022-07-05 14:59 | disposition home or self-care (01) | DRG 808 ==
LOC: ER 13:20 → MEDS 13:21 → ER 13:21 → MEDS 15:14
PROVIDERS: Emergency Medicine; Family Medicine; Student in an Organized Health Care Education/Training Program; ADMIT Hospitalist
DX: D70.9 Neutropenia, unspecified (principal); J18.9 Pneumonia, unspecified organism; C15.9 Malignant neoplasm of esophagus, unspecified; E87.1 Hypo-osmolality and hyponatremia; K12.0 Recurrent oral aphthae; D63.8 Anemia in other chronic diseases classified elsewhere; D69.59 Other secondary thrombocytopenia; T45.1X5A Adverse effect of antineoplastic and immunosuppressive drugs, initial encounter; R50.81 Fever presenting with conditions classified elsewhere; Z66 Do not resuscitate; K72.10 Chronic hepatic failure without coma; K21.9 Gastro-esophageal reflux disease without esophagitis; K52.89 Other specified noninfective gastroenteritis and colitis; K46.9 Unspecified abdominal hernia without obstruction or gangrene; I10 Essential (primary) hypertension; E03.9 Hypothyroidism, unspecified; Z20.822 Contact with and (suspected) exposure to COVID-19; Z91.041 Radiographic dye allergy status; Z79.899 Other long term (current) drug therapy; Z79.891 Long term (current) use of opiate analgesic; Z92.21 Personal history of antineoplastic chemotherapy; Z79.01 Long term (current) use of anticoagulants; Z79.811 Long term (current) use of aromatase inhibitors; Z85.46 Personal history of malignant neoplasm of prostate; Z86.79 Personal history of other diseases of the circulatory system; Z93.1 Gastrostomy status; Z98.49 Cataract extraction status, unspecified eye; Z98.890 Other specified postprocedural states
CPT/HCPCS: 0241U; 36415; 71045; 74176; 80053; 83690; 83735; 85025; 93005; 93010; 96365; 96366; 99285-25; A9270; G0378; J0692; J2405; Q5110

== ENCOUNTER 2023-02-08 14:34 | Emergency (ER) | payer OTHER ==
[~2023-02-08] VITALS: Ht 180.3 cm; Wt 56.7 kg
[~2023-02-08 14:34] MED LIST changes: +AZIT500 PO; +CEFD300 PO; +VISBIOME 112.51 EACH PO
[2023-02-08 22:30] VITALS: BP 119/72
== END 2023-02-08 22:41 | disposition home or self-care (01) ==
LOC: ER 14:34
DX: T18.198A Other foreign object in esophagus causing other injury, initial encounter (principal); Z91.041 Radiographic dye allergy status; Z79.899 Other long term (current) drug therapy
CPT/HCPCS: 99283